=== PATIENT | female | born 1940 | race Caucasian/White ===

== ENCOUNTER 2017-12-26 11:50 | Observation (INO) | payer MEDICARE ==
[~2017-12-26] VITALS: Ht 165.1 cm; Wt 77.6 kg
[2017-12-26] VITALS (9 sets, daily range): BP systolic 106–174; BP diastolic 46–85; Ht 165.1 cm; Wt 77.6 kg
--- NOTE | ~2017-12-26 | CN ---
PATIENT NAME:ANGELY PEREZ MEDICAL RECORD: [id number] : 42 LOCATION:. D.2116 ADMIT DATE: 12/26/17 ACCOUNT: [id number] CONSULTING PHYSICIAN: MERON PEACOCK MD REFERRING PHYSICIAN: MARIOLA CHRISTIANSEN DO DATE OF CONSULTATION: 12/27/2017 CARDIOLOGY CONSULT DIAGNOSES: 1. Angina, unstable. 2. Coronary disease. 3. Previous PTCA and stent. 4. Hypertension. 5. Hyperlipidemia. 6. Insulin-dependent diabetes. HISTORY: Mrs. Perez presents with increasing episodes of chest pain compatible with angina. She does have a cardiac history. Approximately 5 years ago, in [place], she underwent stenting times 2. Her chest pain has been in an escalating fashion, just like that of her previous chest pain prior to the stenting. REVIEW OF SYSTEMS: The patient reports easy bruising but reports no swollen glands. The patient reports no fever, no night sweats, no significant weight gain, no significant weight loss. No significant exercise tolerance. The patient reports no dry eyes, no irritation, no vision change. Patient reports no difficulty hearing and no ear pain. Patient reports no frequent nose bleeds or nose and sinus problems. Patient reports on arm pain on exertion. No shortness of breath while lying down. No history of heart murmur. Patient reports no cough, no wheezing or coughing up blood. Patient reports no abdominal pain, no vomiting. Normal appetite. No diarrhea and not vomiting blood. No nausea and no constipation. Patient reports no incontinence. No difficulty urinating. No hematuria. No increased frequency. Patient reports no muscle aches. No weakness, no arthralgias, no back pain. No swelling of the extremities. Patient reports no abnormal mole, no jaundice, no rashes. Reports no loss of consciousness. No weakness and no numbness. No seizures, dizziness, or headaches. The patient reports no depression, no sleep disturbance, feeling safe in a relationship and no alcohol abuse. Patient reports on fatigue. Reports no runny nose or sinus pressure. No itching, no hives, and no frequent sneezing. PHYSICAL EXAMINATION: GENERAL APPEARANCE: Well-nourished, well-developed, appears stated age. Level of distress, comfortable. PSYCHIATRIC: Mental status, alert, normal affect. Orientation, oriented to time, place and person. EYES: Lids and conjunctiva, noninjected. No discharge, no pallor. ENT: Lips, teeth, gums, normal dentition. Oropharynx, no cyanosis, no pallor. NECK: Carotid arteries, bilateral normal upstroke, no bruits, no thrills. JUGULAR VEINS: No jugular venous pressure or distention. CERVICAL LYMPH NODES: Nontender, nonenlarged. THYROID: Not enlarged. Nontender. No nodules. LUNGS: Respiratory effort, unlabored. CHEST: Normal curvature. No thoracic deformity. No chest wall tenderness. CONSULT REPORT [id number] ANGELY PEREZ Percussion, resonant. Auscultation, clear. No wheezes, no rales, no rhonchi. CARDIOVASCULAR: Precordial exam, nondisplaced. No heaves or pericardial thrills. Rate and rhythm, regular. Heart sounds, normal S1, normal S2. No S3, no gallop, no rub. Systolic murmur, not heard. Diastolic murmur, not heard. EXTREMITIES: No cyanosis, no edema. Peripheral pulses, full and equal in all extremities, except as noted. No bruits appreciated. ABDOMEN: Soft, nondistended. Normal aorta. No bruit. Nontender. No masses. Liver, nontender, no hepatomegaly. Spleen, nontender, no splenomegaly. MUSCULOSKELETAL: No joint tenderness. No joint swelling. No erythema. NEUROLOGICAL: Normal gait, normal strength, normal tone. SKIN: Warm and dry. OVERALL IMPRESSION: Unstable angina. We will proceed with coronary angiography. Further care depends upon the findings of the angiography. TRANSINT:[id number] Voice Confirmation ID: [id number] DOCUMENT ID: [id number] MERON PEACOCK MD at 0931 CC: [id number] DICTATION DATE: 12/27/17 1113 GLASS CUTTER HAND: 12/27/17 1208 ADM IN [facility] [address] [place] [address]
--- NOTE | ~2017-12-26 | DS ---
PATIENT:ANGELY PEREZ :42 MEDICAL RECORD: [id number] DISCHARGE SUMMARY ADMISSION DATE: 12/26/17 DISCHARGE DATE: 12/28/17 DATE OF DISCHARGE: 12/28/2017 DISCHARGE DIAGNOSES: 1. Unstable angina. 2. Coronary artery disease. 3. Percutaneous transluminal coronary angioplasty and stent to the right coronary artery, left anterior descending, and left circumflex this admission. 4. Hypertension. 5. Hyperlipidemia. HOSPITAL COURSE: Ms. Perez presents with anginal symptomatology, found to have 3-vessel coronary artery disease, underwent successful PTCA and stent of all 3 vessels and discharged home with the addition of aspirin and Plavix to her medical regimen. We will follow up with [facility] in 1 month. TRANSINT:[id number] Voice Confirmation ID: [id number] DOCUMENT ID: [id number] MERON PEACOCK MD at 1914 CC: [id number] DICTATION DATE: 12/28/17 0934 BUILDING PERFORMANCE CONSULTANT: 12/28/17 2308 DIS IN 12/28/17 [facility] [address] [place] [id number]
--- NOTE | ~2017-12-26 | MORECARE ---
CASE MANAGEMENT DISCHARGE SUMMARY PATIENT: ANGELY BIGGS UNIT: [id number] ADM DATE: 12/26/17 AGE: 77 : 41 SEX: F ROOM/BED: D.9086 AUTHOR: CHRIS WHITFIELD PHYSICIAN: REFERRING PHYSICIAN: MARIOLA CHRISTIANSEN DO DATE OF SERVICE: 12/28/17 Discharge Plan Patient Name: ANGELY BIGGS Facility: [facility]:[place] : 1940 Planned Disposition: Home Anticipated Discharge Date: 12/28/17 Discharge Date: Expected LOS: 2 Initial Reviewer: [email or web address] Initial Review Date: 12/28/2017 Generated: 12/28/17 1:27 pm Comments DCP- Discharge Planning Updated by [email or web address]: Maciel Beltran on 12/28/17 11:[address] Patient Name: ANGELY BIGGS Encounter No: [id number] : 1940 Primary Insurance: [facility] [employer] Anticipated DC Date: 12-28-2017 Planned Disposition: Home DCP follow-up note: CM NOTIFIED BY DR. PEACOCK THAT PT IS REPORTING INABILITY TO AFFORD PLAVIX THAT IS $20 PER MONTH. CM MET WITH PT AND SPOUSE IN ROOM TO DISCUSS DISCHARGE PLANNING AND NEEDS. ANGELY BIGGS provided verbal consent to discuss current and ongoing needs with/in the presence of: SPOUSE BRIAN. PT LIVES AT HOME INDEPENDENTLY WITH HER SPOUSE, THEY LIVES IN A [place] WITH A RAMP, NO STAIRS INSIDE OR OUT. PT HAS A WALKER ONLY WITH NO MEDICAL EQUIPMENT PROVIDER PREFERENCE. PT HAD AN ELECTRIC WHEELCHAIR BUT THEY WERE HOMELESS AND LIVING IN A RECREATIONAL VEHICLE LAST YEAR AND HAD TO GET RID OF THE ELECTRIC WHEELCHAIR. PT HAS NO OUTSIDE SERVICES ASSISTING IN THE HOME. CM DISCUSSED AVAILABILITY OF HOME HEALTH, REHAB SERVICES AND MEDICAL EQUIPMENT. PT'S SPOUSE DENIES DISCHARGE NEEDS, HE IS DRIVING PT HOME AT DISCHARGE TODAY. CM DISCUSSED PLAVIX AND OTHER MEDICATION COSTS. PT'S SPOUSE REPORTS PT HAS INSURANCE THAT COVERS PRESCRIPTIONS BUT THEY HAVE NOT CHECKED TO SEE WHAT THE COPAY IS ON ANY OF HER MEDICATIONS. PT RECEIVES $1200 MONTHLY SOCIAL SECURITY AND SPOUSE RECEIVES $1300 MONTH SOCIAL SECURITY ADN $500 PER MONTH IN PENSION FROM [employer]. THEY HAVE $400 RENT AND $400 CAR PAYMENT. THEY HAVE SPENT ALL OF THEIR MONEY FOR THIS MONTH AND CANNOT GET PLAVIX UNTIL THE 1ST, WHEN THEY GET THEIR CHECKS. CM DISCUSSED THE NEED FOR PT TO OBTAIN MEDICATIONS, DISCUSSED DECLINE IN HEALTH AND POSSIBLE IF NOT TAKING MEDICATIONS PRESCRIBED. CM DISCUSSED NEED FOR BUDGETING MONTHLY FOR MEDICATIONS. PT'S SPOUSE REPORTS HE KNOWS THIS AND BEGAN TALKING ABOUT GETTING A NEW CAR AND HOW MUCH IT WAS COSTING. CM REDIRECTED PT'S SPOUSE AND ASSISTED WITH EXPLORING PERSONAL SUPPORT SYSTEM OF PT; PT'S SPOUSE REPORTS A BROTHER IN LAW THAT WILL LOAN HIM MONEY BUT GETS MAD ABOUT IT EVEN THOUGH THEY PAY IT BACK THE NEXT MONTH. PT'S SPOUSE REPORTS ALSO HAVING A SISTER THAT WILL LOAN HIM THE MONEY TO FILL THE PRESCRIPTION. CM OFFERED COMMUNITY RESOURCE INFORMATION, SPOUSE DECLINED REPORTING HAVING FAMILY ASSISTANCE. DR. PEACOCK'S STAFF MEMBER ARRIVED AND PROVIDED SAMPLES FOR PLAVIX. PT'S SPOUSE DENIES DISCHARGE NEEDS. FINANCIAL REPORTING ACCOUNTANT NURSE AND DR. PEACOCK NOTIFIED. MACIEL BELTRAN, CASE MANAGEMENT DCPIA - Discharge Planning Initial Assessment Updated by [email or web address]: Maciel Beltran on 12/28/17 12:03 pm * Is the patient Alert and Oriented? Yes * How many steps to enter\exit or inside your home? RAMP * PCP DR. ARAYA * Pharmacy [facility] [address] * Preadmission Environment Home with Family * ADLs Independent * Equipment Walker * Other Equipment NO MEDICAL EQUIPMENT PROVIDER PREFERENCE * List name and contact numbers for known caregivers / representatives who currently or will assist patient after discharge: BRIAN BIGGS, SPOUSE, * Verbal permission to speak to the caregivers and representatives has been obtained from the patient. Yes * Community resources currently utilized None * Please name any agencies selected above. NONE * Additional services required to return to the preadmission environment? No * Can the patient safely return to the preadmission environment? Yes * Has this patient been hospitalized within the prior 30 days at any hospital? Yes Last DP export: 12/28/17 11:11 Patient Name: ANGELY BIGGS Page [id number] at 1227 All edits/amendments must be made on the electronic document DICTATION DATE: 12/28/176 MAGNETIC LOCATER: [place] 12/28/176 RPT#: [id number] DC DATE: STATUS: ADM IN [facility] [address] [place] [address] END OF REPORT
--- NOTE | ~2017-12-26 | HP ---
PATIENT: ANGELY BIGGS MEDICAL RECORD: [id number] ACCOUNT: [id number] LOCATION:[address] : 42 ADMISSION DATE: 12/26/17 PCP: CHIOMA ARAYA DO HISTORY AND PHYSICAL EXAMINATION DATE OF ADMISSION: 12/26/2017 CHIEF COMPLAINT: Left anterior chest pain as well as shoulder pain. HISTORY OF PRESENT ILLNESS: The patient is a 77-year-old female, who resides in [place]. She sees Dr. Deluca in [place]. She presents to the Emergency Room complaining of on and off pain for the past 2 weeks. She states that she has had some shortness of breath, occasional nausea. She presents for followup. It was felt the patient should be admitted. Therefore, she is admitted to Dr. Ahuja's unassigned patient list. PAST MEDICAL HISTORY: Significant that she has had 2 cardiac stents in the past. She has also had a history of diabetes mellitus. FAMILY HISTORY: Father young of heart disease. Mother apparently young of diabetes mellitus. SOCIAL HISTORY: The patient was born in [place], lived in [place], moved to [place] some 15 years ago. She has worked as a LEGAL SUPPORT MANAGER in the past. She is currently not , but does have a male public affairs director. HABITS: None. MEDICATIONS: The patient does not report any medication at the present time. REVIEW OF SYSTEMS: CONSTITUTIONAL: She denies any headaches, seizure, or syncope. She denies change in visual or auditory acuity. PULMONARY: She does report increasing history of shortness of breath. She had no cough. She had no congestion. CARDIOVASCULAR: As stated above. GASTROINTESTINAL: No chronic nausea, vomiting, melena, or hematochezia. GENITOURINARY: No urgency, frequency, or dysuria. PHYSICAL EXAMINATION: VITAL SIGNS: The patient initially, temperature is 98.2, her pulse 70, respirations 18, blood pressure 159/60, pulse ox is 96. HEENT: Her head is normocephalic. No lesions. Ears: TMs clear. Eyes: Pupils equal, round, reactive to light. Her extraocular movements are intact. Her nasal cavity, oral cavity, oropharynx clear. NECK: Supple. There is no adenopathy. HEART: Has a regular rate and rhythm without any murmurs, gallops or rubs. LUNGS: Clear. ABDOMEN: Soft. Bowel sounds positive. EXTREMITIES: Lower extremities have no edema. The patient does have some pain with abduction of the left shoulder. Hand commercial escrow assistant strength is 5/5. She has no clubbing, no cyanosis. MUSCULOSKELETAL: She does have some pain across the anterior chest wall as. LABORATORY AND RADIOGRAPHIC DATA: She had chest x-ray today showing no HISTORY AND PHYSICAL [id number] TALLANT,ANGELY cardiopulmonary disease. She also had an EKG showing sinus rhythm, rate is approximately 74. Her labs showed a white count of 9.5, hemoglobin of 14.5, hematocrit of 43.5, her platelets are 227, no left shift noted. Sodium 139, potassium 3.9, chloride 102, CO2 is 28.2, BUN 15, creatinine 0.6, glucose 184. She has C-reactive protein elevated at 1.8. Troponin, CK-MB, CPK is normal. ProBNP is 149. Albumin slightly low. Urinalysis is unremarkable. The patient had an INR of 1.0. ASSESSMENT: 1. Left chest pain as well as shoulder pain, atypical in nature. 2. History of diabetes mellitus. 3. Hypertension. 4. History of arteriosclerotic heart disease with 2 prior stents in [place]. PLAN: The patient will be admitted. We will cycle cardiac enzymes, also x-ray her left shoulder. Place her on Tylenol since SHE IS ALLERGIC TO ASPIRIN. Cardiology consultation will be obtained as well. TRANSINT:[id number] Voice Confirmation ID: [id number] DOCUMENT ID: [id number] FARZANA GERMAN MD at 0703 CC: [id number] DICTATION DATE: 12/26/17 160 THERMAL MOLDER: 12/26/17 1640 DIS IN 12/28/17 [facility] [address] [place] [address]
--- NOTE | ~2017-12-26 | HEMODYNAMI ---
PATIENT:ANGELY BIGGS MEDICAL RECORD: [id number] : 42 [facility] ADMISSION DATE: 12/26/17 Generatedon:12/27/201713:00 Patient name: ANGELY BIGGS Patient #: [id number] SSN: : 1940 Date of study: 12/27/2017 Page: Of Hemodynamic Procedure Report Patient Data Patient Demographics Procedure consent was obtained First Name: ANGELY Gender: Female Last Name: KALYAN : 1940 Patient #: [id number] Age: 77 year(s) Race: Unknown Additional ID: [id number] Contact details Address: [address] [place] [address] RO[address] State: [place] City: [place] Zip code: [address] Past Medical History Allergies Allergen Reaction Date Comments Reported Other allergy 12/27/2017 aspirin, cat dander Admission Admission Data Admission Date: 12/26/2017 Admission Time: 15:33 Admit Source: Emergency department Room #: D.2116 Lab Results Lab Result Date: 12/27/2017 Lab Result Time: 1:05 Biochemistry Name Units Result Min Max BUN mg/dl 19 --(----)*- 7 18 Creatinine mg/dl 0.8 --(-*--)-- 0.6 1.3 CBC Name Units Result Min Max Hematocrit % 39 *-(----)-- 42 54 Hemoglobin g/dl 12.8 -*(----)-- 13.5 17.5 Procedure Procedure Types Cath Procedure Diagnostic Procedure [facility] w/Coronaries FFR/IVUS Intra-Coronary IVUS Initial PCI Procedure Coronary Stent Coronary Stent Initial Procedure Description Procedure Date Procedure Date: 12/27/2017 Procedure Start Time: 12:39 Procedure End Time: 13:00 Procedure Staff Name Function Memo Junior RT Monitor Justin Walker RN Nurse Isabell Pryor RN Nurse Reshma Martin RT Scrub Bradly Garcia MD Performing Physician Procedure Data Cath Procedure Fluoroscopy Diagnostic fluoroscopy Total fluoroscopy Time: 2.9 time: 2.9 min min Diagnostic fluoroscopy Total fluoroscopy dose: 401 dose: 401 mGy mGy Contrast Material Contrast Material Type Amount (ml) Isovue 300 54 Entry Location Entry Primary Successful Side Size Upsize Upsize Entry Closure Ferrer ccessful Closure Location (Fr) 1 (Fr) 2 (Fr) Remarks Device Remarks Radial Right 6 Fr Mechanical artery Short Compression Estimated blood loss: 10 ml Diagnostic catheters Device Type Used For End Catheter Placement DIAGNOSTIC Gambrills 110cm 5 Procedure Fr catheter ([id number]) Procedure Complications No complications Procedure Medications Medication Administration Route Dosage 0.9% NaCl I.V. 100 ml/hr Oxygen etCO2 Nasal cannula 2 l/min Lidocaine 2% added to field 20 Heparin Flush Bag added to field 2 bags (1000units/500ml NS) Heparin Bolus I.V. 4000 units Integrilin (Bolus I.V. 6.8 ml 2mg/ml) Plavix P.O. 600 mg Versed I.V. 2 mg Fentanyl I.V. 100 mcg Versed I.V. 2 mg Hemodynamics Rest HGB: 12.8 (g/dl) Heart Rate: 92 (bpm) Pressure Samples Time Site Value (mmHg) Purpose Heart Use Rate(bpm) 12:42 LV 133/-49,22 Snapshot 86 Snapshots Pre Cath Intra NCS Post Cath Vital Signs Time Heart Resp SPO2 etCO2 NIBP (mmHg) Rhythm Pain Sedation Rate (ipm) (%) (mmHg) Status Level (bpm) 12:13:01 95 12 100 35 187/95(143) NSR 0 (11) 10(A) , No pain 12:17:29 89 13 96 36 180/82(130) NSR 0 (11) 10(A) , No pain 12:21:58 89 11 98 37 179/87(138) NSR 0 (11) 10(A) , No pain 12:26:18 80 12 98 35.2 134/70(106) NSR 0 (11) 10(A) , No pain 12:30:38 76 12 97 36.3 129/65(106) NSR 0 (11) 10(A) , No pain 12:34:54 74 13 96 37 128/70(102) NSR 0 (11) 10(A) , No pain 12:39:10 72 13 97 38 125/65(104) NSR 0 (11) 10(A) , No pain 12:43:24 85 14 98 37 142/79(107) NSR 0 (11) 10(A) , No pain 12:47:42 82 14 98 37 126/70(89) NSR 0 (11) 9(A) , No pain 12:52:00 80 13 99 38.3 130/69(94) NSR 0 (11) 9(A) , No pain 12:56:59 86 14 100 5.3 Measuring NSR 0 (11) 10(A) , No pain 12:57:07 86 14 100 5.3 165/88(134) NSR 0 (11) 10(A) , No pain Medications Time Medication Route Dose Verified Delivered Reason Notes Effectiveness by by 11:56:09 0.9% NaCl I.V. 100 Bradly Isabell used for ml/hr Radha Pryor dental officer 11:56:18 Oxygen etCO2 2 Bradly Isabell used for Nasal l/min Radha Pryor procedure cannula RN 11:56:26 Lidocaine 2% added 20ml Bradly Abdullahi for local to vial Radha Garcia MD anesthetic field 11:56:31 Heparin Flush added 2 Bradly Bradly used for Bag to bags Radha Garcia MD procedure (1000units/500ml field NS) 12:40:09 Versed I.V. 2 mg Bradly Isabell for sedation Radha Pryor RN 12:40:21 Fentanyl I.V. 100 Bradly Isabell for sedation mcg Radha Pryor RN 12:45:13 Heparin Bolus I.V. 4000 Bradly Isabell for verif ied units Radha Pryor anticoagulation with dr LAURA garcia 12:45:41 Versed I.V. 2 mg Bradly Isabell for sedation Radha Pryor RN 12:46:35 Integrilin I.V. 6.8 Bradly Mckayyla for Waste d (Bolus 2mg/ml) ml Radha Pryor antiplatelet 3.2 ml RN therapy of vial 12:54:42 Plavix P.O. 600 Bradly Mckayyla for mg Radha Pryor antiplatelet RN therapy Procedure Log Time Note 11:54:04 Admit Source: Emergency department 11:54:06 Diagnostic Cath status Elective 11:54:08 Justin Walker RN sent for patient. Start room use. 11:54:09 Time tracking: Call back (After hours or weekends) 11:54:16 Plan of Care:Hemodynamics will remain stable., Cardiac rhythm will remain stable., Comfort level will be maintained., Respiratory function will remain adequate., Patient/ family verbilizes understanding of procedure., Procedure tolerated without complication., Recovers from procedure without complications.. 11:56:09 0.9% NaCl 100 ml/hr I.V. was administered by Isabell Pryor RN; used for procedure; 11:56:18 Oxygen 2 l/min etCO2 Nasal cannula was administered by Isabell Pryor RN; used for procedure; 11:56:26 Lidocaine 2% 20ml vial added to field was administered by Bradly Garcia MD; for local anesthetic; 11:56:31 Heparin Flush Bag (1000units/500ml NS) 2 bags added to field was administered by Bradly Garcia MD; used for procedure; 12:04:06 Patient received from Med II to CCL 1 Alert and oriented. Tansferred to table in Supine position. 12:04:07 Warm blankets applied, and shahla hugger turned on for patient comfort. 12:04:08 Correct patient and procedure confirmed by team. 12:04:10 Signed procedure consent form obtained from patient. 12:04:11 ECG and BP/O2 sat monitors applied to patient. 12:04:21 H&P Date Dictated: 12/26/2017 Within 30 days and on chart.. 12:04:24 Pre-procedure instructions explained to patient. 12:04:28 Pre-op teaching completed and patient verbalized understanding. 12:04:32 Family unavailable. 12:04:34 Patient NPO since Midnight. 12:04:52 Patient allergic to Other allergyaspirin, cat dander 12:10:52 Vital chart was started 12:17:00 Baseline sample Acquired. 12:17:43 Rhythm: sinus rhythm 12:17:45 Is the patient allergic to Iodine/contrast media? No. 12:17:46 Is patient on blood thinner?No 12:17:47 Patient diabetic? Yes. 12:17:48 If diabetic: On Metformin? No 12:17:51 Previous problem with sedation/anesthesia? No ? 12:17:52 Snore? No 12:17:53 Sleep apnea? No 12:17:53 Deviated septum? No 12:17:54 Opens mouth fully? Yes 12:17:55 Sticks out tongue? Yes 12:17:58 Airway obstruction? Yes asthma 12:18:03 Dentures? Yes in tight 12:18:14 Modified Bib's test Ulnar < 7 seconds 12:18:15 Patient pain scale 0/10 ?. 12:21:20 IV patent on arrival in left forearm with 0.9% NaCl at [facility]. 12:22:04 Lab Result : Creatinine 0.8 mg/dl 12:22:04 Lab Result : BUN 19 mg/dl 12:22:05 Lab Result : Hemoglobin 12.8 g/dl 12:22:05 Lab Result : Hematocrit 39 % 12:22:07 Lab results completed and on chart. 12:22:09 Right Radial & Right Groin area was prepped with chlora-prep and draped in sterile fashion 12:22:10 Alarms reviewed by R. N. 12:22:11 Sharps counted by scrub and verified by R.N. 12:22:13 Use device set Radial Dx or PCI 12:22:14 ACIST Syringe (44729) opened to sterile field. 12:22:14 Medline Cath Pack ([id number]) opened to sterile field. 12:22:15 Bag Decanter (2002S) opened to sterile field. 12:22:16 ACIST Hand Control (05971) opened to sterile field. 12:22:16 ACIST Manifold (54811) opened to sterile field. 12:22:17 Tegaderm 4 x 4 (1626W) opened to sterile field. 12:22:17 MBrace Wrist Support ([id number]) opened to sterile field. 12:22:18 SHEATH 6Fr Prelude Radial ([id number]) opened to sterile field. 12:22:20 DIAGNOSTIC WIRE .035 260cm J wire (800918) opened to sterile field. 12:22:27 Physician paged 12:25:41 Zero performed for pressure channel P1 12:31:39 Zero performed for pressure channel P1 12:39:29 Physician arrived 12:39:29 --------ALL STOP TIME OUT------ 12:39:30 Final Timeout: patient, procedure, and site verified with staff and physician. All members of the team are in agreement. 12:39:31 Right Radial & Right Groin site verified by team. 12:39:34 Physical assessment completed. ASA score P 2 - A patient with mild systemic disease as per Bradly Garcia MD. 12::43 Sedation plan: IV Moderate Sedation Medication:Versed, Fentanyl 12:39:46 Procedure started. 12:39:46 Full Disclosure recording started 12:39:52 Local anesthetic to right radial artery with Lidocaine 2% by Bradly Garcia MD.INITIAL ACCESS ONLY 12:40:09 Versed 2 mg I.V. was administered by Isabell Pryor RN; for sedation; 12:40:21 Fentanyl 100 mcg I.V. was administered by Isabell Pryor RN; for sedation; 12:41:26 A 6 Fr Short sheath was inserted into the Right Radial artery 12:41:35 A DIAGNOSTIC Gambrills 110cm 5 Fr catheter (363208) was advanced over the wire and used for Procedure. 12:43:00 LV gram done using MCCOLLUM 12:43:02 Injector settings: Ml/sec: 7, Volume: 15, 12:43:09 EF : 60 % 12:43:17 LCA angiography performed. 12:44:02 Bountiful [place] IVUS Catheter (50561I) opened to sterile field. 12:44:03 GUIDE 6FR AR 1.0 SH catheter ([id number]) opened to sterile field. 12:44:03 CHOICE PT Extra Support 182cm wire ([id number]) opened to sterile field. 12:44:04 INFLATOR Merit BasixCompak (PC3852) opened to sterile field. 12:45:13 Heparin Bolus 4000 units I.V. was administered by Isabell Pryor RN; for anticoagulation; verified with dr garcia 12:45:41 Versed 2 mg I.V. was administered by Isabell Pryor RN; for sedation; 12:45:47 RCA angiography performed. 12:45:49 Catheter exchanged over wire. 12:45:57 6 Fr AR 1 SH guide catheter was inserted over the wire 12:46:35 Integrilin (Bolus 2mg/ml) 6.8 ml I.V. was administered by Isabell Pryor RN; for antiplatelet therapy; Wasted 3.2 ml of vial 12:46:41 CHOICE PT ES wire advanced. 12:46:45 Wire advanced across lesion. 12:47:07 IVUS catheter advanced over wire. 12:47:09 IVUS pass to RCA lesion performed. 12:47:11 IVUS catheter removed over wire. 12:52:26 Place stent Inflation Number: 1 A JULIA RX 3.0 x 38 stent ([id number]) was prepped and advanced across the Mid RCA. The stent was deployed at 15 MALLY for 0:10 (min:sec). 12:52:38 Stent catheter was removed intact over wire. 12:52:38 Wire removed. 12:52:40 Guide catheter removed. 12:52:42 TR BAND Standard ([id number]) opened to sterile field. 12:54:42 Plavix 600 mg P.O. was administered by Isabell Pryor RN; for antiplatelet therapy; 12:54:45 Sheath removed intact; hemostasis achieved with Mechanical Compression to the Right Radial artery. 12:54:46 Procedure ended.(Physican Out) 12:58:27 Fluoroscopy time 02.90 minutes. 12:58:31 Fluoroscopy dose: 401 mGy 12:58:31 Flurop Dose total: 401 12:58:34 Contrast amount:Isovue 300 54ml. 12:58:35 Sharps counted by scrub and verified by R.N. 12:58:37 TR band inflated with 12cc of air. 12:58:38 Insertion/operative site no bleeding no hematoma. 12:58:39 Post Procedure Pulses reassessed and unchanged 12:58:45 Post-procedure physical assessment completed. ASA score P 2 - A patient with mild systemic disease as per Bradly Garcia MD. 12:58:48 Post procedure rhythm: unchanged. 12:58:50 Estimated blood loss: 10 ml 12:58:52 Post procedure instruction explained to patient.Patient verbalizes understanding. 12:58:52 Patient needs reinforcement of post procedure teaching. 12:59:03 Procedure type changed to Cath procedure, Diagnostic procedure, LHC, LHC w/Coronaries, FFR/IVUS, Intra-Coronary IVUS Initial, PCI procedure, Coronary Stent, Coronary Stent Initial 12:59:51 Procedure and supply charges have been captured, reviewed, submitted and are correct. 12:59:53 Procedure Complication : No complications 12:59:54 Vital chart was stopped 12:59:55 See physician's report for complete and final results. 12:59:56 Report given to PCU. 12:59:59 Patient transfered to PCU with Stretcher. 13:00:00 Procedure ended. 13:00:00 Full Disclosure recording stopped 13:00:04 End room use (Document Last) Intervention Summary Intervention Notes Time ActionType Lesion and Equipment Used Action# Pressure Duration Attributes 12:52:26 Place stent Mid RCA JULIA RX 3.0 x 1 15 00:10 38 stent ([id number]) Device Usage Item Name Manufacture Quantity Catalog Number Hospital Part Current Minimal Lot# / Charge Number Stock Stock Serial# Code ACIST Syringe Acist 1 52408 976339 347608 548329 20 (21102) Medical Systems Inc Medline Cath Medline 1 [id number] 523994 22970 436313 5 Pack ([id number]) Bag Decanter Microtek 1 2001S 106294 83202 343992 5 (2001S) Medical Inc. ACIST Hand Acist 1 87261 016980 965343 752044 5 Control (47444) Medical Systems Inc ACIST Manifold Acist 1 14891 616181 889797 202570 5 (13265) Medical Systems Inc Tegaderm 4 x 4 3M 1 1626W 585930 969964 377010 5 (1626W) MBrace Wrist Advanced 1 140-0250-00 455045 95595 709742 5 Support Vascular ([id number]) Dynamics SHEATH 6Fr Merit 1 [id number] 889120 111786 860665 5 Prelude Radial Medical ([id number]) DIAGNOSTIC WIRE [facility] Al[place] 1 728233 697405 241631 249883 30 .035 260cm J wire (040878) DIAGNOSTIC Terumo 1 45-7517 204286 442033 292156 5 Gambrills 110cm 5 Fr catheter (900977) Bountiful Bountiful 1 [id number] 004948 059557 634869 8 [place] IVUS Catheter (45707W) GUIDE 6FR AR Medtronic 1 [id number] 167350 35285 475713 1 1.0 SH catheter ([id number]) CHOICE PT Extra Kennedy 1 [id number] 572569 442842 279371 5 Support 182cm Scientific wire ([id number]) INFLATOR Merit Merit 1 [id number] 628653 792912 571284 15 WePlann (PT7456) JULIA RX 3.0 x Medtronic 1 [id number] 597893 7702455 093637 5 [id number] 38 stent ([id number]) TR BAND Terumo 1 [id number] 843218 987900 322922 40 Standard ([id number]) Signature Audit [place] Stage Time Signature Unsigned Intra-Procedure 12/27/2017 Memo Junior 1:00:36 PM RT(R) Signatures Monitor : Memo Junior RT Signature : Date : Time : [place] [address] [place] [address]
--- NOTE | ~2017-12-26 | HEMODYNAMI ---
PATIENT:ANGELY BIGGS MEDICAL RECORD: [id number] : 42 LOCATION:[facility] D.2116 ADMISSION DATE: 12/26/17 Generatedon:12/28/20179:34 Patient name: ANGELY BIGGS Patient #: [id number] SSN: : 1940 Date of study: 12/28/2017 Page: Of Hemodynamic Procedure Report Patient Data Patient Demographics Procedure consent was obtained First Name: ANGELY Gender: Female Last Name: KALYAN : 1940 Patient #: [id number] Age: 77 year(s) Race: Unknown Additional ID: [id number] Contact details Address: [address] [place] [address] ROAD State: [place] City: [place] Zip code: [address] Past Medical History Allergies Allergen Reaction Date Comments Reported Other allergy 12/27/2017 aspirin, cat dander Admission Admission Data Admission Date: 12/26/2017 Admission Time: 15:33 Admit Source: Emergency department Room #: D.2116 Lab Results Lab Result Date: 12/27/2017 Lab Result Time: 1:05 Biochemistry Name Units Result Min Max BUN mg/dl 19 --(----)*- 7 18 Creatinine mg/dl 0.8 --(-*--)-- 0.6 1.3 CBC Name Units Result Min Max Hematocrit % 39 *-(----)-- 42 54 Hemoglobin g/dl 12.8 -*(----)-- 13.5 17.5 Procedure Procedure Types Cath Procedure Diagnostic Procedure FFR/IVUS Intra-Coronary IVUS Initial Sedation Charges Moderate Sedation up to 15 minutes PCI Procedure Coronary Stent Coronary Stent Initial x2 Procedure Description Procedure Date Procedure Date: 12/28/2017 Procedure Start Time: 9:13 Procedure End Time: 9:32 Procedure Staff Name Function Bradly Garcia MD Performing Physician Izzy Poole RT Monitor Kiel Gonzalez RN Nurse Philomena Hillman RT Scrub Procedure Data Cath Procedure Fluoroscopy Diagnostic fluoroscopy Total fluoroscopy Time: 4.2 time: 4.2 min min Diagnostic fluoroscopy Total fluoroscopy dose: 722 dose: 722 mGy mGy Contrast Material Contrast Material Type Amount (ml) Isovue 300 68 Entry Location Entry Primary Successful Side Size Upsize Upsize Entry Closure Succes sful Closure Location (Fr) 1 (Fr) 2 (Fr) Remarks Device Remarks Femoral Right 6 Fr Exoseal artery Short Estimated blood loss: 5 ml Procedure Complications No complications Procedure Medications Medication Administration Route Dosage Oxygen etCO2 Nasal cannula 2 l/min Heparin Flush Bag added to field 2 bags (1000units/500ml NS) 0.9% NaCl I.V. 100 ml/hr Fentanyl I.V. 50 mcg Versed I.V. 1 mg Fentanyl I.V. 50 mcg Heparin Bolus I.V. 4000 units Hemodynamics Rest Pre Cath Intra NCS Post Cath Vital Signs Time Heart Resp SPO2 etCO2 NIBP (mmHg) Rhythm Pain Sedation Rate (ipm) (%) (mmHg) Status Level (bpm) 8:58:28 74 17 96 0 185/92(145) NSR 0 (11) 10(A) , No pain 9:02:51 73 17 100 0 193/96(163) NSR 0 (11) 10(A) , No pain 9:07:17 74 16 100 0 190/95(148) NSR 0 (11) 10(A) , No pain 9:11:43 80 16 96 0 198/91(144) NSR 0 (11) 10(A) , No pain 9:16:07 80 17 92 0 153/74(115) NSR 0 (11) 9(A) , No pain 9:20:25 79 16 95 0 168/78(129) NSR 0 (11) 9(A) , No pain 9:24:50 76 17 96 0 163/77(129) NSR 0 (11) 9(A) , No pain 9:29:08 81 16 98 0 180/87(140) NSR 0 (11) 9(A) , No pain 9:31:25 79 17 97 0 181/92(134) NSR 0 (11) 9(A) , No pain Medications Time Medication Route Dose Verified Delivered Reason Notes Effectiveness by by 8:58:57 Oxygen etCO2 2 Bradly Dyson Per physician Nasal l/min Radha Gonzalez RN cannula 8:59:05 Heparin Flush added 2 Bradly Dyson used for Bag to bags Radha Gonzalez RN procedure (1000units/500ml field NS) 8:59:13 0.9% NaCl I.V. 100 Bradly Dyson Per physician ml/hr Radha Gonzalez RN 9:11:14 Fentanyl I.V. 50 Bradly Dyson for sedation mcg Radha Gonzalez RN 9:11:20 Versed I.V. 1 mg Bradly Dyson for sedation Radha Gonzalez RN 9:13:28 Fentanyl I.V. 50 Bradly Dyson for sedation mcg Radha Gonzalez RN 9:15:57 Heparin Bolus I.V. 4000 Bradly Dyson for units Radha Gonzalez RN anticoagulation Procedure Log Time Note 8:22:22 Izzy Poole RT(R) sent for patient. Start room use. 8:37:19 Diagnostic Cath status Elective 8:37:24 Time tracking: Regular hours (M-F 7:00 - 5:00) 8:37:30 Plan of Care:Hemodynamics will remain stable., Cardiac rhythm will remain stable., Comfort level will be maintained., Respiratory function will remain adequate., Patient/ family verbilizes understanding of procedure., Procedure tolerated without complication., Recovers from procedure without complications.. 8:38:45 Patient received from Med/Surg to CCL 2 Alert and oriented. Tansferred to table in Supine position. 8:53:30 Warm blankets applied, and shahla hugger turned on for patient comfort. 8:53:31 Correct patient and procedure confirmed by team. 8:53:32 Signed procedure consent form obtained from patient. 8:53:33 ECG and BP/O2 sat monitors applied to patient. 8:53:34 Pre-procedure instructions explained to patient. 8:53:34 Pre-op teaching completed and patient verbalized understanding. 8:57:21 Vital chart was started 8:58:57 Oxygen 2 l/min etCO2 Nasal cannula was administered by Kiel Gonzalez RN; Per physician; 8:59:05 Heparin Flush Bag (1000units/500ml NS) 2 bags added to field was administered by Kiel Gonzalez RN; used for procedure; 8:59:13 0.9% NaCl 100 ml/hr I.V. was administered by Kiel Gonzalez RN; Per physician; 9:05:22 Family in waiting room. 9:05:24 Is the patient allergic to Iodine/contrast media? No. 9:05:25 Was the patient premedicated? No 9:05:28 Is patient on blood thinner?Yes 9:05:32 ACC The patient was administered the following blood thiners within the last 24 hours: ACCPlavix 9:06:00 Patient diabetic? Yes. 9:06:01 If diabetic: On Metformin? No 9:06:04 Previous problem with sedation/anesthesia? No ? 9:06:06 Snore? No 9:06:07 Sleep apnea? No 9:06:09 Deviated septum? No 9:06:10 Opens mouth fully? Yes 9:06:11 Sticks out tongue? Yes 9:06:15 Airway obstruction? Yes asthma 9:06:21 Dentures? Yes in tight 9:06:25 Pre procedure: right dorsailis pedis pulse 1+ Palpable, but thready & weak; easily obliterated 9:06:26 Pre procedure: left dorsailis pedis pulse 1+ Palpable, but thready & weak; easily obliterated 9:06:28 Patient pain scale 0/10 ?. 9:06:41 IV patent on arrival in right antecubital with 0.9% NaCl at O. 9:06:43 Lab results completed and on chart. 9:06:48 Right groin area was prepped with chlora-prep and draped in sterile fashion 9:06:49 Alarms reviewed by R. N. 9:06:49 Sharps counted by scrub and verified by R.N. 9:06:51 Physician arrived 9:06:52 --------ALL STOP TIME OUT------ 9:06:52 Final Timeout: patient, procedure, and site verified with staff and physician. All members of the team are in agreement. 9:06:53 Right groin site verified by team. 9:06:56 Physical assessment completed. ASA score P 2 - A patient with mild systemic disease as per Bradly Garcia MD. 9:07:02 Sedation plan: IV Moderate Sedation Medication:Versed, Fentanyl 9:07:15 Use device set Acist 9:07:17 ACIST Syringe (33483) opened to sterile field. 9:07:17 ACIST Hand Control (19116) opened to sterile field. 9:07:18 ACIST Manifold (04494) opened to sterile field. 9:07:46 CHOICE PT Extra Support 182cm wire ([id number]) opened to sterile field. 9:07:47 INFLATOR Merit Deanak (PW9479) opened to sterile field. 9:07:47 SHEATH Prelude 6Fr 0.035 (LRD-6I-28-035) opened to sterile field. 9:07:48 DIAGNOSTIC WIRE .035 260cm J wire (780956) opened to sterile field. 9:11:14 Fentanyl 50 mcg I.V. was administered by Kiel Gonzalez RN; for sedation; 9:11:20 Versed 1 mg I.V. was administered by Kiel Gonzalez RN; for sedation; 9:12:32 Procedure started. 9:12:32 Full Disclosure recording started 9:12:38 GUIDE 6FR XBLAD 4.0 catheter ([id number]) opened to sterile field. 9:13:03 Local anesthetic to right femoral artery with Lidocaine 2% by Bradly Garcia MD.INITIAL ACCESS ONLY 9:13:13 A 6 Fr Short sheath was inserted into the Right Femoral artery 9:13:28 Fentanyl 50 mcg I.V. was administered by Kiel Gonzalez RN; for sedation; 9:13:31 6 Fr xblad 4 guide catheter was inserted over the wire 9:15:51 Briggs Francisco Eagleye IVUS Catheter (46254Y) opened to sterile field. 9:15:51 choice pt wire advanced. 9:15:53 Wire advanced across lesion. 9:15:54 IVUS catheter advanced over wire. 9:15:57 Heparin Bolus 4000 units I.V. was administered by Kiel Gonzalez RN; for anticoagulation; 9:16:18 IVUS pass to Circ lesion performed. 9:16:20 IVUS catheter removed over wire. 9:18:34 Place stent Inflation Number: 1 A JULIA RX 3.0 x 12 stent ([id number]) was prepped and advanced across the Prox CX. The stent was deployed at 13 MALLY for 0:10 (min:sec). 9:19:25 Stent catheter was removed intact over wire. 9:19:26 Wire removed. 9:19:27 Guide catheter removed. 9:19:39 GUIDE 6FR EBU 3.5 catheter ([id number]) opened to sterile field. 9:20:00 6 Fr ebu 3.5 guide catheter was inserted over the wire 9:21:19 CHOICE PT Extra Support 182cm wire ([id number]) opened to sterile field. 9:21:35 choice pt wire advanced. 9:23:18 Place stent Inflation Number: 1 A JULIA RX 2.25 x 38 stent ([id number]) was prepped and advanced across the Mid LAD. The stent was deployed at 13 MALLY for 0:10 (min:sec). 9:24:48 Stent catheter was removed intact over wire. 9:25:13 Place stent Inflation Number: 1 A JULIA RX 2.5 x 38 stent ([id number]) was prepped and advanced across the Prox LAD. The stent was deployed at 15 MALLY for 0:10 (min:sec). 9:25:52 Inflation number: 2 The stent balloon was then re-inflated across the Prox LAD to 17 MALLY for 0:10 (min:sec). 9:27:55 Stent catheter was removed intact over wire. 9:27:56 Wire removed. 9:27:56 Guide catheter removed. 9:29:58 Sheath removed intact; hemostasis achieved with Exoseal to the Right Femoral artery. 9:30:02 Procedure ended.(Physican Out) 9:30:30 Fluoroscopy time 04.20 minutes. 9:30:38 Flurop Dose total: 722 9:30:38 Fluoroscopy dose: 722 mGy 9:30:52 Contrast amount:Isovue 300 68ml. 9:30:55 Sharps counted by scrub and verified by R.N. 9:31:03 Insertion/operative site no bleeding no hematoma. 9:31:06 Post-op/insertion site Right Femoral artery dressed using a 4 x 4 and Tegaderm. 9:31:40 Post Procedure Pulses reassessed and unchanged 9:31:43 Post procedure rhythm: unchanged. 9:31:45 Estimated blood loss: 5 ml 9:31:50 Post procedure instruction explained to patient.Patient verbalizes understanding. 9:31:51 Patient needs reinforcement of post procedure teaching. 9:32:31 Procedure type changed to Cath procedure, Diagnostic procedure, FFR/IVUS, Intra-Coronary IVUS Initial, Sedation Charges, Moderate Sedation up to 15 minutes, PCI procedure, Coronary Stent, Coronary Stent Initial x2 9:32:33 Procedure and supply charges have been captured, reviewed, submitted and are correct. 9:32:37 Procedure Complication : No complications 9:32:39 Vital chart was stopped 9:32:39 See physician's report for complete and final results. 9:32:45 Report given to [facility]. 9:32:48 Patient transfered to [facility] with Stretcher. 9:32:50 Procedure ended. 9:32:50 Full Disclosure recording stopped 9:32:59 ACC-PCI Only Patient was given prescriptions, or instructed by Bradly Garcia MD to start/continue the following medications upon discharge: Plavix 9:33:01 End room use (Document Last) 9:33:34 EXOSEAL 6Fr (EX600) opened to sterile field. Intervention Summary Intervention Notes Time ActionType Lesion and Equipment Used Action# Pressure Duration Attributes 9:18:34 Place stent Prox CX JULIA RX 3.0 x 1 13 00:10 12 stent ([id number]) 9:23:18 Place stent Mid LAD JULIA RX 2.25 x 1 13 00:10 38 stent ([id number]) 9:25:13 Place stent Prox LAD JULIA RX 2.5 x 1 15 00:10 38 stent ([id number]) 9:25:52 Reinflate Prox LAD JULIA RX 2.5 x 2 17 00:10 stent 38 stent balloon ([id number]) Device Usage Item Name Manufacture Quantity Catalog Number Hospital Part Current Minimal Lot# / Charge Number Stock Stock Serial# Code ACIST Syringe Acist 1 31790 571053 526497 137467 20 (85676) [employer] Inc ACIST Hand Acist 1 52993 162983 256013 386671 5 Control (02495) [employer] ACIST Manifold Acist 1 54053 158545 253946 379238 5 (86934) [employer] CHOICE PT Extra [place] 2 [id number] 187624 177626 860844 5 Support 182cm Scientific wire ([id number]) INFLATOR Merit Merit 1 HO7026 510303 171850 716091 15 [facility] Technologies[facility] ([place]) SHEATH Prelude Merit 1 [id number]-[id number] 833901 2200450 580075 5 6Fr 0.035 Medical (MYS-6P-02-035) DIAGNOSTIC WIRE [facility] Alfonso 1 067833 676568 294237 812066 30 .035 260cm J wire (161082) GUIDE 6FR XBLAD Cardinal 1 [id number] 033429 325436 979330 3 4.0 catheter Health (86113280) Briggs Briggs 1 [id number] 804537 232354 227514 8 Francisco Eagleye IVUS Catheter (76179Q) JULIA RX 3.0 x Medtronic 1 [id number] 854996 0742265 048989 5 [id number] 12 stent ([id number]) GUIDE 6FR EBU Medtronic 1 [id number] 731572 93102 450865 3 3.5 catheter (VR8DPG83) JULIA RX 2.25 x Medtronic 1 [id number] 902425 8519003 232413 5 [id number] 38 stent ([id number]) JULIA RX 2.5 x Medtronic 1 [id number] 271842 5579356 851092 5 [id number] 38 stent ([id number]) EXOSEAL 6Fr Cardinal 1 EX600 723483 348621 882756 10 (EX600) Health Signature Audit [place] Stage Time Signature Unsigned Intra-Procedure 12/28/2017 Philomena Hillman 9:34:00 AM RT(R) Signatures Monitor : Izzy Poole Signature : RT Date : Time : [facility] [address] [place] [address]
--- NOTE | ~2017-12-26 | MORECARE ---
CASE MANAGEMENT DISCHARGE SUMMARY PATIENT: ANGELY BIGGS UNIT: [id number] ADM DATE: 12/26/17 AGE: 77 : [birth year] SEX: F ROOM/BED: D.[facility] AUTHOR: CHRIS WHITFIELD PHYSICIAN: REFERRING PHYSICIAN: MARIOLA CHRISTIANSEN DO DATE OF SERVICE: 12/28/17 Discharge Plan Patient Name: ANGELY BIGGS [facility] [facility] 1940 Planned Disposition: Home Anticipated Discharge Date: 12/28/17 Discharge Date: Expected LOS: 2 Initial Reviewer: [email or web address] Initial Review Date: 12/28/2017 Generated: 12/28/17 1:11 pm DCPIA - Discharge Planning Initial Assessment Updated by [email or web address]: Maciel Moss on 12/28/17 12:03 pm * Is the patient Alert and Oriented? Yes * How many steps to enter\exit or inside your home? RAMP * PCP DR. ARAYA * Pharmacy [facility] * Preadmission Environment Home with Family * ADLs Independent * Equipment Walker * Other Equipment NO MEDICAL EQUIPMENT PROVIDER PREFERENCE * List name and contact numbers for known caregivers / representatives who currently or will assist patient after discharge: BRIAN ANNE KALYAN, SPOUSE, * Verbal permission to speak to the caregivers and representatives has been obtained from the patient. Yes * Community resources currently utilized None * Please name any agencies selected above. NONE * Additional services required to return to the preadmission environment? No * Can the patient safely return to the preadmission environment? Yes * Has this patient been hospitalized within the prior 30 days at any hospital? Yes Patient Name: ANGELY BIGGS Page [phone] at 1211 All edits/amendments must be made on the electronic document DICTATION DATE: 12/28/17 1211 AUTOMATION ARCHITECT: [place] 12/28/17 1211 RPT#: [id number] DC DATE: STATUS: ADM IN [facility] [address] [place] [address] END OF REPORT
--- NOTE | ~2017-12-26 | OP ---
PATIENT NAME: ANGELY BIGGS MEDICAL RECORD: [id number] :[birth year] LOCATION:D.M2 D.2116 ADMISSION DATE:12/26/17 SURGEON: MERON PEACOCK MD DATE OF OPERATION: 12/27/2017 PROCEDURES: 1. PTCA and stent to the RCA. 2. Intravascular ultrasound. 3. Left heart catheterization. 4. Selective coronary angiography. 5. Left ventriculogram. INDICATIONS: Unstable angina and coronary artery disease. PROCEDURE IN DETAIL: After informed consent was obtained after detailed discussion of the risks, benefits as well as alternative therapies, the patient elected to proceed with angiogram and angioplasty. The right femoral area was prepped and draped in normal sterile fashion. Right femoral artery was cannulated via modified Seldinger technique with placement of 6-Romanian sheath. All catheters exchanged through this sheath. FINDINGS: Left ventriculogram was performed at standard 30-degree MCCOLLUM view, reveals good cardiac wall motion throughout all segments. Overall ejection fraction estimated at 60%. SELECTIVE CORONARY ANGIOGRAPHY: 1. Left main is with no significant angiographic disease. 2. Left anterior descending has previously placed stents. There are multiple areas of 80% to 90% stenosis throughout the LAD. 3. Left circumflex has 70% to 80% stenosis in the mid vessel. 4. Right coronary has greater than 80% stenosis throughout the mid vessel confirmed by intravascular ultrasound. We will probably do circ and LAD tomorrow. PTCA AND STENT OF THE RCA: Stent used is a 3.0 x 38 mm [place]. Result was 0% residual stenosis. OVERALL IMPRESSION: Successful percutaneous transluminal coronary angioplasty and stent of the right coronary artery going from greater than 80% initial stenosis to 0% residual. PLAN: PTCA stent of the LAD and circumflex in the a.m. TRANSINT:[id number] Voice Confirmation ID: [id number] DOCUMENT ID: [id number] OPERATIVE REPORT [id number] SRUTHIARENANGELY JEFFREY MD at 1914 CC: [id number] DICTATION DATE: 12/27/17 1301 CERTIFIED MEDICAL TECHNICIAN ASSISTANT: 12/28/17 0008 DIS IN 12/28/17 [facility] [address] [place] [address]
--- NOTE | ~2017-12-26 | OP ---
PATIENT NAME: ANGELY BIGGS MEDICAL RECORD: [id number] :42 LOCATION:D.M2 D.2116 ADMISSION DATE:12/26/17 SURGEON: MERON PEACOCK MD DATE OF OPERATION: 12/28/2017 PROCEDURES: 1. PTCA stent LAD. 2. PTCA stent left circumflex. 3. Selective coronary angiography. 4. Intravascular ultrasound. INDICATION: Angina and coronary artery disease. PROCEDURE IN DETAIL: After informed consent was obtained and after a detailed description of risks, benefits as well as alternative therapies, the patient elected to proceed with angiogram and angioplasty. The right femoral area was prepped and draped in normal sterile fashion. The right femoral artery was cannulated via modified Seldinger technique with placement of 6-Syriac sheath. All catheters exchanged through this sheath. FINDINGS: The left anterior descending had multiple areas of 90+ percent stenosis. This was addressed with a 2.25 x38 and 2.5 x 38, both Abelardo stents. Result was 0% residual stenosis. Intravascular ultrasound reveals greater than 80% stenosis of the left circumflex. This was addressed with a 3.0 x 12 mm Abelardo. OVERALL IMPRESSION: Successful percutaneous transluminal coronary angioplasty stent of the left anterior descending and circumflex, both going from 80% and 90% initial stenosis to 0% residual. TRANSINT:[id number] Voice Confirmation ID: [id number] DOCUMENT ID: [id number] MERON PEACOCK MD at 1914 CC: FARZANA GERMAN [id number] DICTATION DATE: 12/28/17 0933 MANUFACTURING SPECIALIST: 12/28/17 1147 DIS IN 12/28/17 [facility] [address] [place] [address]
[2017-12-26 12:29] LABS: BASOPHILS 0.2 % (0-2); EOSINOPHILS 0.9 % (0-7); HEMATOCRIT 43.5 % (36.0-48.0); HEMOGLOBIN 14.5 g/dL (12-16); IMMATURE GRANULOCYTES 0.2 % (0-5); LYMPHOCYTES 32.1 % (15-50); MCH 28.7 pg (26.0-34.0); MCHC 33.3 g/dL (31.0-37.0); MCV 86.1 fL (80.0-100.0); MEAN PLATELET VOLUME 12.1 fL (7.4-10.4); MONOCYTES 5.1 % (2-11); NEUTROPHILS 61.5 % (40-80); PLATELET COUNT 277 10x3/uL (130-400); RBC 5.05 10x6/uL (4.00-5.40); RDW 13.1 % (11.5-14.5); WBC 9.5 10x3/uL (4.8-10.8)
[2017-12-26 12:43] LABS: PROTIME 12.8 SECONDS (11.6-15.0)
[2017-12-26 13:38] LABS: ALBUMIN 3.1 g/dL (3.4-5.0); ALKALINE PHOSPHATASE 99 U/L (46-116); ALT (SGPT) 12 U/L (10-68); BILIRUBIN - TOTAL 0.38 mg/dL (0.2-1.3); CALC OSMOLALITY 283 mosm/kg (275-300); CALCIUM 8.8 mg/dL (8.5-10.1); CARBON DIOXIDE 28.2 mmol/L (21.0-32.0); CHLORIDE - SERUM 102 mmol/L (98-107); CREATININE - SERUM 0.6 mg/dL (0.6-1.3); GLUCOSE 184 mg/dL (74-106); POTASSIUM - SERUM 3.9 mmol/L (3.5-5.1); PROTEIN - SERUM 7.3 g/dL (6.4-8.2); SODIUM 139 mmol/L (136-145); UREA NITROGEN 15 mg/dL (7-18); eGFR NON AFRICAN AMERICAN > 90 mL/min (90-120)
[2017-12-26 13:52] LABS: C-REACTIVE PROTEIN 1.8 mg/dL (0.0-0.9); CKMB 0.7 U/L (0.0-3.6); CREATINE KINASE 37 UL (21-215); PRO BNP 149 pg/mL (0-450); TROPONIN-I < 0.017 ng/mL (0.000-0.060)
[2017-12-26 14:47] LABS: APPEARANCE HAZY (CLEAR); BILIRUBIN NEGATIVE (NEGATIVE); COLOR YELLOW (YELLOW); GLUCOSE 1000 mg/dL (NEGATIVE); KETONE NEGATIVE (NEGATIVE); NITRITE NEGATIVE (NEGATIVE); PROTEIN NEGATIVE (NEGATIVE); SPECIFIC GRAVITY 1.015 (1.005-1.020); UROBILINOGEN NORMAL (NORMAL)
[2017-12-26 14:48] LABS: EPITHELIAL CELLS OCC /hpf (0-5); RED CELLS - URINE NONE SEEN /hpf (0-5); WHITE CELLS - URINE NSEEN /hpf (0-5)
[2017-12-26 16:15] LABS: CHOL - HDL RATIO 5.4 ratio (2.3-4.1); LDL-HDL RATIO 3.4 ratio (1.5-3.5)
[2017-12-27 01:11] LABS: BASOPHILS 0.2 % (0-2); EOSINOPHILS 1.7 % (0-7); HEMOGLOBIN 12.8 g/dL (12-16); IMMATURE GRANULOCYTES 0.3 % (0-5); MCH 28.8 pg (26.0-34.0); MCHC 32.8 g/dL (31.0-37.0); MCV 87.8 fL (80.0-100.0); MEAN PLATELET VOLUME 11.1 fL (7.4-10.4); MONOCYTES 7.8 % (2-11); RBC 4.44 10x6/uL (4.00-5.40); WBC 10.7 10x3/uL (4.8-10.8)
[2017-12-27 01:12] LABS: PLATELET COUNT 193 10x3/uL (130-400)
[2017-12-27 01:28] LABS: CALC OSMOLALITY 285 mosm/kg (275-300); CALCIUM 8.6 mg/dL (8.5-10.1); CARBON DIOXIDE 28.3 mmol/L (21.0-32.0); CHLORIDE - SERUM 104 mmol/L (98-107); CREATININE - SERUM 0.8 mg/dL (0.6-1.3); GLUCOSE 160 mg/dL (74-106); SODIUM 141 mmol/L (136-145); TROPONIN-I < 0.017 ng/mL (0.000-0.060); UREA NITROGEN 19 mg/dL (7-18); eGFR NON AFRICAN AMERICAN 74 mL/min (90-120)
[2017-12-27 01:31] VITALS: BP 108/96
[2017-12-27 06:05] VITALS: BP 105/39
[2017-12-27 08:42] VITALS: BP 129/64
[2017-12-27 16:38] VITALS: BP 134/71
[2017-12-27 20:00] VITALS: BP 146/56
[2017-12-28] VITALS: BP 155/74
[2017-12-28 04:00] VITALS: BP 144/57
[2017-12-28 06:37] LABS: BASOPHILS 0.2 % (0-2); EOSINOPHILS 1.5 % (0-7); HEMATOCRIT 39.9 % (36.0-48.0); HEMOGLOBIN 13.1 g/dL (12-16); IMMATURE GRANULOCYTES 0.1 % (0-5); MCHC 32.8 g/dL (31.0-37.0); MCV 88.3 fL (80.0-100.0); MEAN PLATELET VOLUME 10.5 fL (7.4-10.4); MONOCYTES 8.2 % (2-11); PLATELET COUNT 166 10x3/uL (130-400); RBC 4.52 10x6/uL (4.00-5.40)
[2017-12-28 06:51] LABS: CALC OSMOLALITY 280 mosm/kg (275-300); CALCIUM 8.1 mg/dL (8.5-10.1); CARBON DIOXIDE 28.5 mmol/L (21.0-32.0); CHLORIDE - SERUM 106 mmol/L (98-107); CREATININE - SERUM 0.6 mg/dL (0.6-1.3); GLUCOSE 132 mg/dL (74-106); POTASSIUM - SERUM 3.9 mmol/L (3.5-5.1); SODIUM 140 mmol/L (136-145); eGFR NON AFRICAN AMERICAN > 90 mL/min (90-120)
[2017-12-28 06:52] LABS: UREA NITROGEN 13 mg/dL (7-18)
[2017-12-28 08:40] VITALS: BP 155/62
[2017-12-28 11:42] VITALS: BP 168/77
[2017-12-28] MEDS ORDERED: PLAVIX75 MG PO (16:52)
[2017-12-28] MEDS ORDERED: GLUCOPHAGE500 MG PO (16:53)
[2017-12-28] MEDS ORDERED: LISINOPRIL5 MG PO (16:54)
== END 2017-12-28 17:49 | disposition home or self-care (01) ==
LOC: D.ER 11:50 → D.M2 15:33 → OBSVTIME 15:33 → D.EDHOLD 15:33 → D.M2 16:07 → D.SDCHOLD 12-28 14:26 → D.M2 12-28 14:28
PROVIDERS: Family Medicine; Internal Medicine Interventional Cardiology
DX: I25.110 Atherosclerotic heart disease of native coronary artery with unstable angina pectoris (principal); Z95.5 Presence of coronary angioplasty implant and graft; I10 Essential (primary) hypertension; E78.5 Hyperlipidemia, unspecified; E11.9 Type 2 diabetes mellitus without complications
CPT/HCPCS: 93458; 92978 ×2; C9600 ×3

== ENCOUNTER 2018-06-16 09:01 | Outpatient (CLI) | payer MEDICARE ==
[~2018-06-16] VITALS: Ht 157.5 cm; Wt 72.7 kg
--- NOTE | ~2018-06-16 | HEMODYNAMI ---
PATIENT:ANGELY BIGGS MEDICAL RECORD: [id number] : 42 LOCATION:D.CAT ADMISSION DATE: 06/16/18 Generatedon:06/16/201810:50 Patient name: ANGELY BIGGS Patient #: [id number] SSN: : 1940 Date of study: 06/16/2018 Page: Of Hemodynamic Procedure Report Patient Data Patient Demographics First Name: ANGELY Gender: Female Last Name: KALYAN : 1940 Middle Initial: M Age: 78 year(s) Patient #: [id number] Race: Unknown Additional ID: [id number] Contact details Address: [employer] [address] [employer] State: [place] City: [place] Zip code: [address] Past Medical History Allergies Allergen Reaction Date Comments Reported Other allergy 12/27/2017 aspirin, cat dander Acetaminophen 06/16/2018 Admission Admission Data Admission Date: 06/16/2018 Admission Time: 9:01 Height (in.): 63 BSA: 1.8 (m2) Height (cm.): 160.02 BMI: 29.76 (kg/m2) Weight (lbs.): 168 Weight (kg.): 76.2 Lab Results Lab Result Date: 06/16/2018 Lab Result Time: 0:00 Biochemistry Name Units Result Min Max BUN mg/dl 18 --(---*)-- 7 18 Creatinine mg/dl 0.6 --(*---)-- 0.6 1.3 CBC Name Units Result Min Max Hemoglobin g/dl 14.4 --(*---)-- 13.5 17.5 Procedure Procedure Types Cath Procedure Diagnostic Procedure [facility] w/Coronaries Sedation Charges Moderate Sedation up to 15 minutes PCI Procedure Coronary Atherectomy Atherectomy w/PTCA Coronary Initial Procedure Description Procedure Date Procedure Date: 06/16/2018 Procedure Start Time: 10:17 Procedure End Time: 10:47 Procedure Staff Name Function Bradly Garcia MD Performing Physician Philomena Hillman RT Monitor Justin Walker RN Nurse Izzy Poole RT Scrub Procedure Data Cath Procedure Fluoroscopy Diagnostic fluoroscopy Total fluoroscopy Time: 0 time: 0 min min Diagnostic fluoroscopy Total fluoroscopy dose: 758 dose: 758 mGy mGy Contrast Material Contrast Material Type Amount (ml) Isovue 300 105 Entry Location Entry Primary Successful Side Size Upsize Upsize Entry Closure Succes sful Closure Location (Fr) 1 (Fr) 2 (Fr) Remarks Device Remarks Femoral Right 5 Fr 6 Fr Exoseal artery Short Estimated blood loss: 5 ml Procedure Complications No complications Procedure Medications Medication Administration Route Dosage Oxygen etCO2 Nasal cannula 2 l/min Lidocaine 2% added to field 20 Heparin Flush Bag added to field 2 bags (1000units/500ml NS) 0.9% NaCl I.V. 100 ml/hr Versed I.V. 1 mg Fentanyl I.V. 50 mcg Radial Cocktail added to field 1 syringe (Verapomil 2mg/Nitro 400mcg/Heparin 1500units) Versed I.V. 1 mg Fentanyl I.V. 50 mcg Heparin Bolus I.V. 4000 units Integrilin (Bolus I.V. 6.8 ml 2mg/ml) Plavix P.O. 600 mg Hemodynamics Rest BSA: 1.8 (m2) O2 Consumption: Estimated: 166.34 (ml/min) O2 Consumption indexed: Estimated:92.41 (ml/min/m) Heart Rate: 75 (bpm) Pressure Samples Time Site Value (mmHg) Purpose Heart Use Rate(bpm) 10:25 LV 76/9,8 Snapshot 70 Snapshots Pre Cath Intra NCS Post Cath Vital Signs Time Heart Resp SPO2 etCO2 NIBP (mmHg) Rhythm Pain Sedation Rate (ipm) (%) (mmHg) Status Level (bpm) 10:01:43 73 12 99 38.7 178/84(116) NSR 0 (11) 10(A) , No pain 10:05:59 70 15 94 31.2 152/85(127) NSR 0 (11) 10(A) , No pain 10:10:11 70 15 94 23 154/72(103) NSR 0 (11) 10(A) , No pain 10:15:21 73 15 99 28.3 188/91(108) NSR 0 (11) 9(A) , No pain 10:19:47 70 34 95 0 137/69(100) NSR 0 (11) 9(A) , No pain 10:23:54 69 22 94 18.6 134/67(84) NSR 0 (11) 9(A) , No pain 10:28:02 73 10 94 0 135/68(101) NSR 0 (11) 9(A) , No pain 10:32:10 73 13 95 0 132/69(90) NSR 0 (11) 9(A) , No pain 10:36:20 72 12 95 32 129/61(83) NSR 0 (11) 9(A) , No pain 10:40:26 77 12 98 36.5 141/67(99) NSR 0 (11) 9(A) , No pain 10:45:27 80 12 100 32 171/94(124) NSR 0 (11) 10(A) , No pain Medications Time Medication Route Dose Verified Delivered Reason Not es Effectiveness by by 10:03:42 Oxygen etCO2 2 l/min Bradly Anderson used for Nasal Radha Walker RN procedure cannula 10:03:49 Lidocaine 2% added 20ml Bradly Abdullahi for local to vial Radha Garcia MD anesthetic field 10:03:55 Heparin Flush added 2 bags Bradly Abdullahi used for Bag to Radha Garcia MD procedure (1000units/500ml field NS) 10:04:17 0.9% NaCl I.V. 100 Bradly Anderson Per physician ml/hr Radha Walker RN 10:10:19 Versed I.V. 1 mg Bradly Anderson for sedation Radha Walker RN 10:10:25 Fentanyl I.V. 50 mcg Bradly Anderson for sedation Radha Walker RN 10:10:38 Radial Cocktail added 1 Bradly Abdullahi for (Verapomil to syringe Radha Garcia MD vasodilation 2mg/Nitro field 400mcg/Heparin 1500units) 10:17:36 Versed I.V. 1 mg Bradly Abdullahi for sedation Radha Garcia MD 10:17:40 Fentanyl I.V. 50 mcg Bradly Abdullahi for sedation Radha Garcia MD 10:32:59 Heparin Bolus I.V. 4000 Bradly Anderson for ruben ified units Radha Walker RN anticoagulation with dr garcia 10:34:12 Integrilin I.V. 6.8 ml Bradly Buffie for was davidson (Bolus 2mg/ml) Radha Walker RN antiplatelet 3.2 ml therapy of vial 10:46:20 Plavix P.O. 600 mg Bradly Walker RN antiplatelet therapy Procedure Log Time Note 9:14:33 Patient Height : 63 inches 9:14:40 Patient Weight : 168 lbs 9:15:09 Diagnostic Cath status Elective 9:15:12 Philomena Hillman RT(R) sent for patient. Start room use. 9:15:13 Time tracking: Regular hours (M-F 7:00 - 5:00) 9:15:18 Plan of Care:Hemodynamics will remain stable., Cardiac rhythm will remain stable., Comfort level will be maintained., Respiratory function will remain adequate., Patient/ family verbilizes understanding of procedure., Procedure tolerated without complication., Recovers from procedure without complications.. 9:52:21 Patient received from Pre/Post Procedure Room to CCL 2 Alert and oriented. Tansferred to table in Supine position. 9:52:23 Warm blankets applied, and shahla hugger turned on for patient comfort. 9:52:23 Correct patient and procedure confirmed by team. 9:52:28 ECG and BP/O2 sat monitors applied to patient. 9:52:56 Lab Result : Creatinine 0.6 mg/dl 9:52:56 Lab Result : BUN 18 mg/dl 9:52:56 Lab Result : Hemoglobin 14.4 g/dl 10:00:38 Vital chart was started 10:00:42 Rhythm: sinus rhythm 10:00:44 Full Disclosure recording started 10:00:57 H&P Date Dictated: 05/31/2018 Within 30 days and on chart., H&P Addendum completed by physician on day of procedure. (MUST COMPLETE FOR ALL OUTPATIENTS). 10:00:59 Pre-procedure instructions explained to patient. 10:00:59 Pre-op teaching completed and patient verbalized understanding. 10:01:00 Family in patients room. 10:01:03 Patient NPO since Midnight. 10:01:09 Patient allergic to Acetaminophen 10:01:11 Is the patient allergic to Iodine/contrast media? No. 10:03:24 Is patient on blood thinner?No 10:03:25 Patient diabetic? Yes. 10:03:26 If diabetic: On Metformin? No 10:03:28 Previous problem with sedation/anesthesia? No ? 10:03:30 Snore? Yes 10:03:31 Sleep apnea? No 10:03:32 Deviated septum? No 10:03:33 Opens mouth fully? Yes 10:03:33 Sticks out tongue? Yes 10:03:37 Airway obstruction? Yes asthma 10:03:40 Dentures? No ? 10:03:42 Oxygen 2 l/min etCO2 Nasal cannula was administered by Justin Walker RN; used for procedure; 10:03:49 Lidocaine 2% 20ml vial added to field was administered by Bradly Garcia MD; for local anesthetic; 10:03:55 Heparin Flush Bag (1000units/500ml NS) 2 bags added to field was administered by Bradly Garcia MD; used for procedure; 10:04:17 0.9% NaCl 100 ml/hr I.V. was administered by Justin Walker RN; Per physician; 10:06:37 Pre procedure: right dorsailis pedis pulse 1+ Palpable, but thready & weak; easily obliterated 10:06:40 Pre procedure: left dorsailis pedis pulse 1+ Palpable, but thready & weak; easily obliterated 10:06:43 Patient pain scale 0/10 ?. 10:06:49 IV patent on arrival in left forearm with 0.9% NaCl at [facility]. 10:06:51 Lab results completed and on chart. 10:06:56 Right Radial & Right Groin area was prepped with chlora-prep and draped in sterile fashion 10:06:57 Alarms reviewed by R. N. 10:06:57 Sharps counted by scrub and verified by R.N. 10:08:41 Physician arrived 10:08:42 --------ALL STOP TIME OUT------ 10:08:42 Final Timeout: patient, procedure, and site verified with staff and physician. All members of the team are in agreement. 10:08:44 Right Radial & Right Groin site verified by team. 10:08:48 Maximum allowable Isovue 300 dose 300ml. Physician notified. (300ml for normal creatinines. For patients with creatinine of 1.7 or higher multiply weight(kg) x 5 divided by creatinine.) 10:08:52 Fire Safety Assessment: A--An alcohol-based skin anteseptic being used preoperatively., C--Open oxygen or nitrous oxide is being used., D--An ESU, laser, or fiber-optic light is being used. 10:08:56 Physical assessment completed. ASA score P 2 - A patient with mild systemic disease as per Bradly Garcia MD. 10:09:00 Sedation plan: IV Moderate Sedation Medication:Versed, Fentanyl 10:09:03 Use device set Radial Dx or PCI 10:09:04 ACIST Syringe (32388) opened to sterile field. 10:09:04 Medline Cath Pack ([id number]) opened to sterile field. 10:09:05 Bag Decanter (2002S) opened to sterile field. 10:09:05 DIAGNOSTIC WIRE .035 260cm J wire (431196) opened to sterile field. 10:09:06 ACIST Hand Control (39346) opened to sterile field. 10:09:06 ACIST Manifold (73643) opened to sterile field. 10:09:06 Tegaderm 4 x 4 (1626W) opened to sterile field. 10:09:07 MBrace Wrist Support ([id number]) opened to sterile field. 10:09:08 SHEATH 6FR Slender (08-0252) opened to sterile field. 10:10:19 Versed 1 mg I.V. was administered by Justin Walker RN; for sedation; 10:10:25 Fentanyl 50 mcg I.V. was administered by Justin Walker RN; for sedation; 10:10:34 Zero performed for pressure channel P1 10:10:38 Radial Cocktail (Verapomil 2mg/Nitro 400mcg/Heparin 1500units) 1 syringe added to field was administered by Bradly Garcia MD; for vasodilation; 10:15:05 Baseline sample Acquired. 10:16:59 Procedure started. 10:17:07 Local anesthetic to right radial artery with Lidocaine 2% by Bradly Garcia MD.INITIAL ACCESS ONLY 10:17:36 Versed 1 mg I.V. was administered by Bradly Garcia MD; for sedation; 10:17:40 Fentanyl 50 mcg I.V. was administered by Bradly Garcia MD; for sedation; 10:20:54 Local anesthetic to right femoral artery with Lidocaine 2% by Bradly Garcia MD.ADDITIONAL ACCESS 10:21:06 DIAGNOSTIC Multipack 5Fr catheter set (LB9820) opened to sterile field. 10:21:07 SHEATH 5FR [place] (ILW133) opened to sterile field. 10:25:17 A 5 Fr sheath was inserted into the Right Femoral artery 10:25:28 5 Fr pig guide catheter was inserted over the wire 10:25:43 LV hemodynamics recorded. 10:25:44 LV gram done using MCCOLLUM 10::58 EF : 55 % 10:26:13 Catheter removed. 10::21 5 Fr jl 4 guide catheter was inserted over the wire 10:26:30 LCA angiography performed. 10::32 Injector settings: Ml/sec: 3, Volume: 6, 10:27:02 Catheter removed. 10:27:11 5 Fr 3drc guide catheter was inserted over the wire 10::42 RCA angiography performed. 10::44 Injector settings: Ml/sec: 3, Volume: 6, 10:29:04 Catheter removed. 10:29:42 SHEATH 6FR [place] (IGN179) opened to sterile field. 10:29:43 INFLATOR Merit BasixCompak (NV8000) opened to sterile field. 10:29:44 CHOICE PT Extra Support 182cm wire ([id number]) opened to sterile field. 10:30:20 GUIDE 6FR XBLAD 3.5 catheter ([id number]) opened to sterile field. 10:30:32 LASER ELCA 0.9 Rx atherectomy catheter (454285) opened to sterile field. 10:30:48 Sheath upsized to a 6 Fr Short. 10:30:59 6 Fr xblad 3.5 guide catheter was inserted over the wire 10:31:05 choice pt wire advanced. 10:32:59 Heparin Bolus 4000 units I.V. was administered by Justin Walker RN; for anticoagulation; verified with dr garcia 10:34:12 Integrilin (Bolus 2mg/ml) 6.8 ml I.V. was administered by Justin Walker RN; for antiplatelet therapy; wasted 3.2 ml of vial 10:35:51 Laser pass to pCirc with Fluence of 80 and Rate of 40. 10:35:52 Laser catheter removed. 10:39:14 Inflate balloon Inflation number: 1 A EUPHORA 2.5 x 15 Balloon ([id number]) was prepped and advanced across the Prox CX, then inflated to 17 MALLY for 0:10 (min:sec). 10:39:24 Wire redirected to lad. 10:40:23 Balloon removed over the wire. 10:40:59 Laser pass to mLAD with Fluence of 80 and Rate of 40. 10:41:02 Laser catheter removed. 10:42:29 Inflation number: 1 The EUPHORA 2.5 x 15 Balloon ([id number]) was reinflated across the Mid LAD, to 15 MALLY for 0:10 (min:sec). 10:42:37 Inflation number: 2 The EUPHORA 2.5 x 15 Balloon ([id number]) was reinflated across the Mid LAD, to 21 MALLY for 0:10 (min:sec). 10:43:19 Inflation number: 3 The EUPHORA 2.5 x 15 Balloon ([id number]) was reinflated across the Mid LAD, to 21 MALLY for 0:10 (min:sec). 10:44:10 Balloon removed over the wire. 10:44:17 Wire removed. 10:44:18 Guide catheter removed. 10:44:35 EXOSEAL 6Fr (EX600) opened to sterile field. 10:45:09 Laser total pulses delivered: 1600 10:45:23 Laser total treatment time: 0 minutes 40 seconds 10:45:44 Sheath removed intact; hemostasis achieved with Exoseal to the Right Femoral artery. 10:45:50 Procedure ended.(Physican Out) 10:46:04 Fluoroscopy time 00.00 minutes. 10:46:08 Fluoroscopy dose: 758 mGy 10:46:08 Flurop Dose total: 758 10:46:20 Plavix 600 mg P.O. was administered by Justin Walker RN; for antiplatelet therapy; 10:46:22 Contrast amount:Isovue 300 105ml. 10:46:23 Sharps counted by scrub and verified by R.N. 10:46:25 Insertion/operative site no bleeding no hematoma. 10:46:29 Post-op/insertion site Right Femoral artery dressed using a 4 x 4 and Tegaderm. 10:46:33 Post procedure rhythm: unchanged. 10:46:35 Estimated blood loss: 5 ml 10:46:37 Post procedure instruction explained to patient.Patient verbalizes understanding. 10:46:37 Patient needs reinforcement of post procedure teaching. 10:47:30 Procedure type changed to Cath procedure, Diagnostic procedure, LHC, LHC w/Coronaries, Sedation Charges, Moderate Sedation up to 15 minutes, PCI procedure, Coronary Atherectomy, Atherectomy w/PTCA Coronary Initial 10:47:33 Procedure and supply charges have been captured, reviewed, submitted and are correct. 10:47:37 Procedure Complication : No complications 10:47:40 Vital chart was stopped 10:47:40 See physician's report for complete and final results. 10:47:51 Report given to Pre/Post Procedure Room. 10:47:53 Patient transfered to Pre/Post Procedure Room with Stretcher. 10:47:55 Procedure ended. 10:47:55 Full Disclosure recording stopped 10:48:05 ACC-PCI Only Patient was given prescriptions, or instructed by Bradly Garcia MD to start/continue the following medications upon discharge: Plavix 10:48:06 End room use (Document Last) Intervention Summary Intervention Notes Time ActionType Lesion and Equipment Action# Pressure Duration Attributes Used 10:39:14 Inflate Prox CX EUPHORA 1 17 00:10 balloon 2.5 x 15 Balloon ([id number]) 10:42:29 Reinflate Mid LAD EUPHORA 1 15 00:10 balloon 2.5 x 15 Balloon ([id number]) 10:42:37 Reinflate Mid LAD EUPHORA 2 21 00:10 balloon 2.5 x 15 Balloon ([id number]) 10:43:19 Reinflate Mid LAD EUPHORA 3 21 00:10 balloon 2.5 x 15 Balloon ([id number]) Device Usage Item Name Manufacture Quantity Catalog Number Hospital Part Current [facility] al Lot# / Charge Number Stock Stock Serial# Code ACIST Acist 1 86498 562370 756035 [id number] 20 Syringe Medical (11688) Systems Inc Medline Medline 1 [id number] 569943 44972 625070 5 Cath Pack ([id number]) Bag Microtek 1 921601 71157 988783 5 Decanter Medical Inc. () DIAGNOSTIC [facility] [place] 1 139566 651661 290153 720082 30 WIRE .035 260cm J wire (412960) ACIST Hand Acist 1 89204 493187 660257 079660 5 Control Medical (39798) Systems Inc ACIST Acist 1 98930 951175 597047 000320 5 Send the Trend Medical (87849) Systems Inc Tegaderm 4 3M 1 1626W 516321 485729 663054 5 x 4 (1626W) MBrace Advanced 1 140-0250-00 673752 01767 902925 5 Wrist Vascular Support Dynamics ([id number]) SHEATH 6FR Terumo 1 [id number] 679664 756398 980016 5 Slender (80-1060) DIAGNOSTIC Cardinal 1 UP7485 617430 84280 353477 30 Beanup 5Fr catheter set (OJ3202) SHEATH 5FR Terumo 1 KFM056 476494 974658 806014 5 [place] (VWU091) SHEATH 6FR Terumo 1 TPM914 958284 960550 474281 40 [place] (POH583) INFLATOR Merit 1 FV6775 303841 676095 545750 15 [facility] BasixCompak (PC2009) CHOICE PT Leo 1 [id number] 413436 668603 251857 5 Extra Scientific Support 182cm wire (8211058P6) GUIDE 6FR Cardinal 1 [id number] 319328 563212 921958 10 XBLAD 3.5 Health catheter (78854915) LASER ELCA Jeff 1 110-004 502030 888490 648304 5 0.9 Rx Healthcare atherectomy (441771) catheter (297716) EUPHORA 2.5 Medtronic 1 [id number] 923185 789151 963464 5 [id number] x 15 Balloon ([id number]) EXOSEAL 6Fr Cardinal 1 EX600 509599 077891 881105 10 (EX600) Health Signature Audit [place] Stage Time Signature Unsigned Intra-Procedure 06/16/2018 Philomena Hillman 10:50:05 AM RT(R) Signatures Monitor : Philomena Hillman RT Signature : Date : Time : [facility] [address] [place] [address]
[~2018-06-16 09:01] MED LIST: GLUCOPHAGE500 MG PO; LISINOPRIL5 MG PO; PLAVIX75 MG PO
[2018-06-16] MEDS ORDERED: ASPIRIN81 MG PO (09:21)
[2018-06-16] MEDS ORDERED: CALCIUM 600 +1 EAC3 PO (09:23)
[2018-06-16] MEDS ORDERED: FUROSEMIDE20 MG PO (09:24)
[2018-06-16] MEDS ORDERED: ZYRTEC10 MG PO (09:24)
[2018-06-16] MEDS ORDERED: GLIPIZIDE10 MG PO (09:25)
[2018-06-16] MEDS ORDERED: OMEPRAZOLE20 M1 PO (09:25)
[2018-06-16] MEDS ORDERED: NEURONTIN 300300 MG PO (09:25)
[2018-06-16 09:31] VITALS: BP 179/75; Ht 157.5 cm; Wt 72.7 kg
[2018-06-16 09:34] LABS: BASOPHILS 0.1 % (0-2); EOSINOPHILS 1.5 % (0-7); HEMATOCRIT 42.2 % (36.0-48.0); HEMOGLOBIN 14.4 g/dL (12-16); IMMATURE GRANULOCYTES 0.2 % (0-5); LYMPHOCYTES 28.7 % (15-50); MCHC 34.1 g/dL (31.0-37.0); MCV 85.1 fL (80.0-100.0); MEAN PLATELET VOLUME 11.4 fL (7.4-10.4); MONOCYTES 6.2 % (2-11); NEUTROPHILS 63.3 % (40-80); PLATELET COUNT 176 10x3/uL (130-400); RBC 4.96 10x6/uL (4.00-5.40); RDW 12.9 % (11.5-14.5)
[2018-06-16 09:48] LABS: CALC OSMOLALITY 282 mosm/kg (275-300); CALCIUM 8.8 mg/dL (8.5-10.1); CHLORIDE - SERUM 103 mmol/L (98-107); CREATININE - SERUM 0.6 mg/dL (0.6-1.3); GLUCOSE 149 mg/dL (74-106); POTASSIUM - SERUM 3.9 mmol/L (3.5-5.1); SODIUM 139 mmol/L (136-145); UREA NITROGEN 18 mg/dL (7-18); eGFR NON AFRICAN AMERICAN > 90 mL/min (90-120)
--- NOTE | 2018-06-16 11:15 | NUR ---
BP 209/97. CLONIDINE 0.1MG GIVEN PER ORDERS. RIGHT GROIN 6F EXOSEAL CDI, NO BLEEDING OR HEMATOMA NOTED. 2L NC, NO RESP DISTRESS. NO C/O PAIN OR NAUSEA. VSS. FAMILY AT BEDSIDE, CALL LIGHT WITHIN REACH.
--- NOTE | 2018-06-16 11:45 | NUR ---
VOIDED 400CC INTO BEDPAN. RIGHT GROIBN 6F EXOSEAL CDI, NO BLEEDING OR HEMATOMA NOTED. DENIES ANY NEEDS. VSS. WILL CONTINUE TO MONITOR.
--- NOTE | 2018-06-16 12:00 | NUR ---
BP 185/76. RIGHT GROIN 6F EXOSEAL CDI, NO BLEEDING OR HEMATOMA NOTED. DENIES ANY NEEDS. VSS. CALL LIGHT WITHIN REACH.
--- NOTE | 2018-06-16 12:30 | NUR ---
RESTING QUIETLY WITH EYES CLOSED. RIGHT GROIN 6F EXOSEAL CDI, NO BLEEDING OR HEMATOMA NOTED. DENIES ANY NEEDS AT THIS TIME. VSS. WILL CONTINUE TO MONITOR.
--- NOTE | 2018-06-16 13:00 | NUR ---
CONTINUES TO REST COMFORTABLY WITH NO C/O. 2L NC WITH NO RESP DISTRESS. RIGHT GROIN 6F EXOSEAL CDI, NO BLEEDING OR HEMATOMA NOTED. VSS. WILL CONTINUE TO MONITOR.
--- NOTE | 2018-06-16 13:45 | NUR ---
HOB ELEVATED 30 DEGREES. RIGHT GROIN 6F EXOSEAL RUI, NO BLEEDING NOTED. SIPPING ON DRINK AND EATING SANDWICH WITH NO C/O NAUSEA. VSS. WILL CONTINUE TO MONITOR CLOSELY.
--- NOTE | 2018-06-16 14:00 | NUR ---
DISCHARGE INSTRUCTIONS GIVEN TO PT AND ALONG WITH A PLAVIX PRESCRIPTION. BOTH VERBALIZED UNDERSTANDING.
--- NOTE | 2018-06-16 14:20 | NUR ---
LEFT PIV D/C'D WITH CATHETER INTACT, BAND AID TO SITE. UP TO BEDSIDE TO GET DRESSED.
--- NOTE | 2018-06-16 14:45 | NUR ---
PATIENT STATES SHES NOT FEELING WELL AND VERY DIZZY. BP 78/48. PATIENT PLACED BACK INTO BED AND EKG PERFORMED. 20G IV STARTED TO LEFT HAND AND FLUIDS RUNNING IN PER ORDERS FROM DR. YIN. VSS. WILL MONITOR CLOSELY.
--- NOTE | 2018-06-16 16:20 | NUR ---
FLUID BOLUS DONE. BP 124/58. UP TO BEDSIDE. NO C/O DIZZINESS. LEFT HAND PIV D/C'D WITH CATHETER INTACT, BAND AID TO SITE.
--- NOTE | 2018-06-16 16:30 | NUR ---
TAKEN OUT VIA WHEELCHAIR BY CATH COIN BOX INSPECTOR. LEFT FACILITY WITH FAMILY AND ALL PERSONAL BELONGINGS.
--- NOTE | 2018-06-18 15:12 | OP ---
PATIENT NAME: ANGELY BIGGS MEDICAL RECORD: [id number] :42 LOCATION:D.CAT ADMISSION DATE: SURGEON: MERON PEACOCK MD DATE OF OPERATION: 06/16/2018 PROCEDURES: 1. Laser atherectomy, LAD. 2. Laser atherectomy, left circumflex. 3. PTCA, LAD. 4. PTCA, left circumflex. 5. Left heart catheterization. 6. Selective coronary angiography. 7. Left ventriculogram. INDICATIONS: Angina and coronary artery disease. PROCEDURE IN DETAIL: After informed consent was obtained with detailed description of risks and benefits as well as alternative therapies, the patient elected to proceed with angiogram and angioplasty. The right femoral area was prepped and draped in normal sterile fashion. The right femoral artery was cannulated via modified Seldinger technique with placement of 6-[place] sheath. All catheters were exchanged through this sheath. FINDINGS: The left ventriculogram performed in standard 30-degree MCCOLLUM view reveals preserved cardiac wall motion. Ejection fraction estimated at 50%. SELECTIVE CORONARY ANGIOGRAPHY: 1. Left main has no significant angiographic disease. 2. Left anterior descending has previously placed stents with 90% in-stent restenosis in mid vessel. 3. Left circumflex has previously placed stent with 70% in-stent restenosis proximally. 4. Right coronary has previously placed stents. These are widely patent with no significant restenosis. LASER ATHERECTOMY AND PTCA OF LAD AND CIRCUMFLEX: Both vessels were addressed with laser catheter. Multiple passes were made at 80/40. PTCA was performed with a 2.5 balloon. Result was 0% residual. OVERALL IMPRESSION: Successful laser atherectomy and PTCA for in-stent restenosis of both LAD and circumflex, going from 70% to 90% initial stenosis to 0% residual. TRANSINT:[id number] Voice Confirmation ID: [id number] DOCUMENT ID: [id number] MERON PEACOCK MD at 1512 CC: [id number] DICTATION DATE: 06/16/18 1048 WINDOW CASER: 06/16/18 1211 DEP CLI 06/16/18 [id number] [place] [address]
== END 2018-06-16 16:30 | disposition home or self-care (01) ==
LOC: D.CATH 09:01
PROVIDERS: ATTEND Internal Medicine Interventional Cardiology
DX: I25.119 Atherosclerotic heart disease of native coronary artery with unspecified angina pectoris (principal); Z01.812 Encounter for preprocedural laboratory examination

== ENCOUNTER 2019-09-16 16:34 | Emergency (ER) | payer MEDICARE ==
[~2019-09-16] VITALS: Ht 157.5 cm; Wt 72.7 kg
[~2019-09-16 16:34] MED LIST changes: +ASPIRIN81 MG PO; +CALCIUM 600 +1 EAC3 PO; +FUROSEMIDE20 MG PO; +GLIPIZIDE10 MG PO; +NEURONTIN 300300 MG PO; +OMEPRAZOLE20 M1 PO; +ZYRTEC10 MG PO
[2019-09-16 16:36] VITALS: Ht 157.5 cm; Wt 72.7 kg
[2019-09-16] MEDS ORDERED: TORADOL10 MG PO (18:15)
[2019-09-16 18:38] VITALS: BP 144/61
== END 2019-09-16 19:08 | disposition home or self-care (01) ==
LOC: D.ER 16:34
DX: S00.83XA Contusion of other part of head, initial encounter (principal); V89.2XXA Person injured in unspecified motor-vehicle accident, traffic, initial encounter; Y93.9 Activity, unspecified; Y92.9 Unspecified place or not applicable; E11.9 Type 2 diabetes mellitus without complications; I10 Essential (primary) hypertension; J44.9 Chronic obstructive pulmonary disease, unspecified; K21.9 Gastro-esophageal reflux disease without esophagitis; Z79.84 Long term (current) use of oral hypoglycemic drugs